=== PATIENT | female | born 1990 | race African-American/Black ===

== ENCOUNTER 2017-02-15 20:23 | Emergency (ER) | payer OTHER ==
[~2017-02-15] VITALS: Ht 172.7 cm; Wt 64.7 kg
[2017-02-15 20:27] VITALS: TEMP 36.9; Ht 172.7 cm; Wt 64.7 kg
[2017-02-15] MEDS ORDERED: ONDANSETRON 4MG OD TAB PO STA (20:46)
[2017-02-15] MEDS ORDERED: KETOROLAC TROMETHAMINE 60 MG/2 ML VIAL IM STA (20:46)
[2017-02-15] MEDS ORDERED: MoRPHine SULFATE 10 MG/ML CARP/VIAL IM STA (20:46)
[2017-02-15] MEDS ORDERED: ACET-749 PO (21:22)
[2017-02-15] MEDS ORDERED: CYCL10TA6 PO (21:22)
[2017-02-15] MEDS ORDERED: FLEXERIL HOME PACK 10 MG VIAL PO ONE (21:30)
[2017-02-15] MEDS ORDERED: TYLENOL #3 HOME PACK PO ONE (21:30)
[2017-02-15 21:46] VITALS: BP 124/68; PULSE 88; O2SAT 100
--- NOTE | 2017-02-15 22:19 | EMERGENCY ROOM VISIT NOTE ---
History First contact with patient: 20:39 Chief Complaint: BACK PAIN Stated Complaint: LOW BACK INFLAMMATION,SWELLING AND PAIN History of Present Illness The patient is a 26 year old female who presents to the Emergency Room with complaints of back pain after working out this afternoon. The patient reports that she ran 2 miles this morning, then started to lift weights when she developed sudden onset of back discomfort. She denies any pain extending into the buttocks or down the legs. She does report frequent back pain after working out. She has not had any further medical follow-up for her back. She rates her discomfort a 10 out of 10. She has not taken any medications for her pain. Review of Systems 10 system review was performed and was negative except for pertinent positives and negatives as indicated in history of present illness Past Medical/Surgical History Medical Problems: (1) No significant past medical history Surgical Problems: (1) No history of previous surgery Family History Unremarkable Social History Smoking Status: Never Smoker Alcohol Use: occasionally Marital Status: single Current/Historical Medications Scheduled Cyclobenzaprine Hcl (Flexeril), 10 MG PO TID Scheduled PRN Acetaminophen/Codeine (Tylenol W/Codeine #3), 1-2 TABS PO q4-6h PRN for Pain Allergies Coded Allergies: No Known Allergies (Unverified , 02/15/17) Physical Exam Vital Signs Date Time Temp Pulse Resp B/P (MAP) Pulse Ox O2 Delivery O2 Flow Rate FiO2 02/15/17 21:46 88 18 124/68 100 Room Air 02/15/17 21:46 02/15/17 20:27 36.9 86 18 121/69 99 Room Air Pain Rating (0-10): 6.0 Physical Exam CONSTITUTIONAL: Healthy and well nourished. Alert and oriented X 3 with flat affect. Patient appears in moderate discomfort from pain. HEENT: Normocephalic, atraumatic. Pupils equal, round and reactive. NECK: Full active range of motion without discomfort. The patient has no tenderness to palpation through the central cervical spine or paraspinous muscles. RESPIRATORY: Clear to auscultation bilaterally with no wheezing, crackles, rhonchi or stridor. CARDIOVASCULAR: Regular rate and rhythm with no murmurs, rubs or gallops. GASTROINTESTINAL: Bowel sounds present in all quadrants. Soft and nontender to palpation. MUSCULOSKELETAL: Examination shows diffuse tenderness to palpation through the lower thoracic and lumbar paraspinous muscle region. No significant rigidity with palpation of the muscles. INTEGUMENTARY: No rash or other significant dermatologic conditions noted. NEUROLOGIC: Cranial nerves II-XII grossly intact. No focal neurologic deficits noted. Lower extremities are sensory intact. Medical Decision & Procedures Medications Administered Medications (Trade) Dose Ordered Sig/Erick Route Start Time Stop Time Status Last Admin Dose Admin Morphine Sulfate (MoRPHine SULFATE INJ) 8 mg NOW STAT IM 02/15/17 20:46 02/15/17 20:48 DC 02/15/17 20:56 8 MG Ketorolac Tromethamine (Toradol Inj) 60 mg NOW STAT IM 02/15/17 20:46 02/15/17 20:48 DC 02/15/17 20:57 60 MG Ondansetron HCl (Zofran Odt) 4 mg NOW STAT PO 02/15/17 20:46 02/15/17 20:48 DC 02/15/17 20:56 4 MG Acetaminophen/ Codeine Phosphate (TYLENOL W/ CODEINE #3 Home Pack) 1 homepack UD ONCE PO 02/15/17 21:30 02/15/17 21:31 DC 02/15/17 21:42 1 HOMEPACK Cyclobenzaprine HCl (FLEXERIL 10MG Home Pack) 1 homepack UD ONCE PO 02/15/17 21:30 02/15/17 21:31 DC 02/15/17 21:42 1 HOMEPACK ED Course Patient history and physical exam were performed. Nurse's notes were reviewed. Vital signs were reviewed and normal. History and clinical exam are consistent with muscle strain. The patient requested something in the emergency department for pain. She was administered IM morphine and Toradol, along with Zofran ODT. This reduced her pain to a 6 out of 10. The patient was provided home packs and prescriptions for Tylenol with Codeine and Flexeril. the patient was instructed to avoid drinking alcohol or driving while taking these medications. The patient was instructed to follow-up with her PCP if symptoms are not improving within the next 3-5 days. Because she does have recurrent back problems, I also explained that she may benefit from physical therapy as well. The patient voiced understanding of all discharge instructions, and was happy with plan of care. Medical Decision Impression Primary Impression: Back strain Departure Information Dispostion Home / Self-Care Condition GOOD Prescriptions Acetaminophen/Codeine (Tylenol W/Codeine #3) 300 Mg/30 Mg Tab 1-2 TABS PO q4-6h Y for Pain, #20 TAB For Initial Treatment Prov: Raul Hunter PA 02/15/17 Cyclobenzaprine Hcl (FLEXERIL) 10 Mg Tab 10 MG PO TID for spasm, #15 TAB Prov: Raul Hunter PA 02/15/17 Forms HOME CARE DOCUMENTATION FORM, IMPORTANT VISIT INFORMATION Patient Instructions Back Pain - [facility], [facility] Additional Instructions Intermittently apply ice to back for the first 48 hrs for swelling and pain, then moist heat as needed. Do not sit for long periods of time. Avoid heavy lifting. Ibuprofen 600 mg every 6 hours. Flexeril every 8 hours to prevent muscle spasms. Tylenol No. 3 as needed for worse pain. Do not drink or drive while taking these medications. Follow-up with your family doctor in 3-5 days for reevaluation. Since you frequently get back pain, we suggest that you get a physical therapy referral. Problem Qualifiers Primary Impression: Back strain Encounter type: initial encounter Qualified Codes: S39.012A - Strain of muscle, fascia and tendon of lower back, initial encounter
== END 2017-02-15 21:48 | disposition home or self-care (01) ==
LOC: C.EDB 20:25 → C.EDD 21:48
DX: S39.012A Strain of muscle, fascia and tendon of lower back, initial encounter (principal); X58.XXXA Exposure to other specified factors, initial encounter